=== PATIENT | female | born 1955 | race Two or more races ===

== ENCOUNTER → 2016-12-16 | Outpatient (REF) | payer OTHER ==
[~2016-12-16] MED LIST: ALBU83IN INH; ASPIRIN; ASTELIN; CELE-19 PO; COUM2.5T11 PO; LEXA1TAB PO; LYRI75CA PO; NASAL SPRAY; OMEPPOW18 PO; PERCOCET PO; TRAMADOL PO; TYLE167L PO; [UNRECOGNIZED DRUG - REMARK] PO
[2016-12-16 15:08] LABS: MEAN CORPUSCULAR HEMOGLOBIN 29.8 pg (27.0-33.0); MEAN CORPUSCULAR HGB CONC 33.7 g/dl (32.0-36.5); MEAN CORPUSCULAR VOLUME 88.5 fl (80.0-96.0); RED CELL DISTRIBUTION WIDTH 13.5 % (11.5-14.5); WHITE BLOOD COUNT 4.9 K/mm3 (4.0-10.0)
[2016-12-16 15:34] LABS: ERYTHROCYTE SEDIMENTATION RATE 58 mm/hr (0-30)
[2016-12-16 16:37] LABS: BASOPHILS 3 % (0-4); EOSINOPHILS 3 % (0-5)
== END ==
LOC: M LABDRAW1 13:39
PROVIDERS: ATTEND Physician Assistant
DX: Z96.651 Presence of right artificial knee joint (principal)

== ENCOUNTER → 2017-01-05 | Outpatient (CLI) | payer OTHER ==
--- NOTE | 2017-01-05 12:49 | REP ---
TRIPLE-PHASE BONE SCAN OF THE KNEES: Following the intravenous administration of 22 mCi technetium 99m MDP, patient's knees are imaged in the flow phase in the anterior and posterior projections showing symmetrical blood flow. Immediate blood pool and 2-hour delayed images are performed in the anterior, posterior and both lateral projections. Comparison made with prior study of 03/05/2015. Photopenic area in the region of the right knee joint is compatible with a metallic prosthesis. Increased uptake is again seen in the medial aspect of the left knee joint compatible with arthritic uptake. This appears stable. There is very mild increased uptake in the proximal aspect of the right tibia and in the distal end of the right femur adjacent to the metallic prosthesis. This appearance is unchanged since the prior exam. IMPRESSION: Arthritic uptake medial left knee joint. Very mildly increased uptake along the margins of the right knee prosthesis is likely physiologic with no new finding. No compelling scintigraphic evidence of loosening compared to the prior study. Signed by Eliseo Govea MD 01/05/2017 03:30 P
== END ==
LOC: M RAD 08:37
PROVIDERS: ATTEND Physician Assistant
DX: M25.561 Pain in right knee (principal)

== ENCOUNTER → 2017-01-12 | Outpatient (REF) | payer OTHER ==
[2017-01-12 14:53] LABS: RBC ADVIA BF 0.03; RBC CALC. BF 30000 (< 10mm3 cells/uL); SYNOVIAL FLUID COLOR AMBER (YELLOW)
[2017-01-12 14:54] LABS: BF DIFF IF INDICATED? YES (NO); WBC ADVIA BF 0.89; WBC CALC. BF 890 cells/uL (0-20)
[2017-01-12 14:58] LABS: CC BF DIFF EXAM CYTOCENTRIFUGE; CRYSTALS, BODY FLUID NONE SEEN (NONE SEEN)
[2017-01-12 14:59] LABS: HCT SOURCE RT KNEE
== END ==
LOC: M LAB REF 13:00
PROVIDERS: ATTEND Physician Assistant
DX: Z96.651 Presence of right artificial knee joint (principal)

== ENCOUNTER → 2020-03-25 | Outpatient (CLI) | payer MEDICARE, BC ==
[~2020-03-25] MED LIST changes: -CELE-19 PO; +CELE1CAP4 PO; -COUM2.5T11 PO; +COUM2.5T17 PO
--- NOTE | 2020-03-25 12:39 | REPMRS ---
Patient History The patient states she has not had a clinical breast exam in over a year.Patient is postmenopausal. Family history of breast cancer at age 54 in sister, colorectal cancer at age 66 in mother, colorectal cancer at age 60 in maternal aunt, colorectal cancer in maternal cousin. 3D TOMOSYNTHESIS WAS PERFORMED. The [facility] lifetime risk for breast cancer is 13.7%. VOLPAR[employer] DENSITY A. Digital Woman Screen Mammo: March 25, 2020 - Exam #: [id number] Bilateral CC and MLO view(s) were taken. Technologist: Raquel Bowling, Technologist FINDINGS: There are scattered fibroglandular densities. There has been no change in the appearance of the mammogram from the prior studies. There is a mild amount of residual fibroglandular tissue which is fairly symmetric. There is no interval development of dominant mass, architectural distortion, or clustered microcalcification suggestive of malignancy. Assessment: BI-RADS/ACR category 1 mammogram. Negative Mammogram. Recommendation Routine screening mammogram in 1 year (for women over age 40). This mammogram was interpreted with the aid of an FDA-approved computer-aided dectection system. Electronically Signed By: Eliseo Govea MD 03/25/20 [id number]
== END ==
LOC: M WHC 11:11
PROVIDERS: ATTEND Family Medicine
DX: Z12.31 Encounter for screening mammogram for malignant neoplasm of breast (principal); Z80.3 Family history of malignant neoplasm of breast; Z80.0 Family history of malignant neoplasm of digestive organs

== ENCOUNTER → 2021-03-31 | Outpatient (CLI) | payer MEDICARE | LOC: M WHC 12:33 | PROVIDERS: ATTEND Family Medicine | DX: Z12.31 Encounter for screening mammogram for malignant neoplasm of breast (principal) ==

== ENCOUNTER → 2021-05-23 | Outpatient (CLI) | payer MEDICARE, BC | LOC: M WHC 13:02 | PROVIDERS: ATTEND Family Medicine | DX: N64.4 Mastodynia (principal) | CPT/HCPCS: 76642; 77066; G0279 ==

== ENCOUNTER → 2022-01-22 | Outpatient (CLI) | payer MEDICARE, BC ==
[2022-01-22 13:46] LABS: FREE T4 1.09 NG/DL (0.76-1.46); RHEUMATOID FACTOR QUANT < 10.0 IU/ML (<15.0); THYROID STIMULATING HORMONE 0.957 uIU/ML (0.358-3.740); TOTAL PROTEIN 7.6 GM/DL (6.4-8.2); VITAMIN B12 LEVEL 538 PG/ML
[2022-01-22 14:18] LABS: HEMOGLOBIN A1c 11.6 %
== END ==
LOC: M PLALAB 10:13
PROVIDERS: ATTEND Psychiatry & Neurology Neurology
DX: E11.40 Type 2 diabetes mellitus with diabetic neuropathy, unspecified (principal); E07.9 Disorder of thyroid, unspecified

== ENCOUNTER 2024-11-06 06:16 | Day surgery (SDC) | payer MEDICARE ==
[~2024-11-06] VITALS: Ht 157.5 cm; Wt 117.9 kg
[~2024-11-06 06:16] MED LIST changes: +ACET650T61 PO; +ALBU2.5V10 INH; -ALBU83IN INH; +ATOR40TA75 PO; +ERGO500029 PO; +FLUTISP INH; +LANTINJ4 SC; +MONT10TA97 PO; +OMEP40CA5 PO; +SEMA7TAB2 PO
[2024-11-06] MEDS: FLURBIPROFEN 0.03% OPHTH SOLN 2.5 ML OD SCH (06:48)
[2024-11-06] MEDS: TETRACAINE 0.5% OPHTH SOLN 4ML OD SCH (06:48)
[2024-11-06] MEDS: CYCLOPENTOLATE 1% OPHTH SOLN 2ML BTL OD SCH (06:48)
[2024-11-06] MEDS: PHENYLEPHRINE 2.5% OPHTH SOL 2ML OD SCH (06:48)
[2024-11-06] MEDS ORDERED: LR 1,000 ML IV SCH (07:00)
[2024-11-06] MEDS ORDERED: MIDAZOLAM INJ 2MG/2ML VIAL As Ordered ONE (07:04)
[2024-11-06] MEDS: CEFUROXIME 1MG/0.1ML INTRACAMERAL INJ As Ordered ONE (08:00)
[2024-11-06] MEDS: LIDOCAINE 1% SDV 5ML VIAL As Ordered ONE (08:00)
[2024-11-06 08:18] VITALS: BP 130/72; TEMP 97.7; O2SAT 96
== END 2024-11-06 08:35 | disposition home or self-care (01) ==
LOC: M SDC 06:16
PROVIDERS: ATTEND Ophthalmology
DX: E11.36 Type 2 diabetes mellitus with diabetic cataract (principal); H25.11 Age-related nuclear cataract, right eye; E78.00 Pure hypercholesterolemia, unspecified; K76.0 Fatty (change of) liver, not elsewhere classified; J45.909 Unspecified asthma, uncomplicated; E11.40 Type 2 diabetes mellitus with diabetic neuropathy, unspecified; K21.9 Gastro-esophageal reflux disease without esophagitis; Z79.899 Other long term (current) drug therapy; Z79.4 Long term (current) use of insulin; Z79.85 Long-term (current) use of injectable non-insulin antidiabetic drugs; Z88.5 Allergy status to narcotic agent; Z88.1 Allergy status to other antibiotic agents; Z88.8 Allergy status to other drugs, medicaments and biological substances; Z90.710 Acquired absence of both cervix and uterus; Z87.19 Personal history of other diseases of the digestive system; Z87.891 Personal history of nicotine dependence
CPT/HCPCS: 66984; J0697; J2250; V2632

== ENCOUNTER 2024-11-13 06:12 | Day surgery (SDC) | payer MEDICARE ==
[~2024-11-13] VITALS: Ht 157.5 cm; Wt 118.4 kg
[2024-11-13] MEDS ORDERED: LR 1,000 ML IV SCH (07:00)
[2024-11-13] MEDS: FLURBIPROFEN 0.03% OPHTH SOLN 2.5 ML OS SCH (07:05)
[2024-11-13] MEDS: TETRACAINE 0.5% OPHTH SOLN 4ML OS SCH (07:05)
[2024-11-13] MEDS: CYCLOPENTOLATE 1% OPHTH SOLN 2ML BTL OS SCH (07:05)
[2024-11-13] MEDS: PHENYLEPHRINE 2.5% OPHTH SOL 2ML OS SCH (07:05)
[2024-11-13] MEDS ORDERED: MIDAZOLAM INJ 2MG/2ML VIAL As Ordered ONE (07:09)
[2024-11-13] MEDS: LIDOCAINE 1% SDV 5ML VIAL As Ordered ONE (08:10)
[2024-11-13] MEDS: CEFUROXIME 1MG/0.1ML INTRACAMERAL INJ As Ordered ONE (08:14)
[2024-11-13] MEDS ORDERED: ACETAMINOPHEN 1000MG/100ML IV BAG As Ordered ONE (08:16)
[2024-11-13 08:33] VITALS: BP 139/77; TEMP 97; O2SAT 95
== END 2024-11-13 09:06 | disposition home or self-care (01) ==
LOC: M SDC 06:12
PROVIDERS: ATTEND Ophthalmology
DX: E11.36 Type 2 diabetes mellitus with diabetic cataract (principal); H25.12 Age-related nuclear cataract, left eye; E11.69 Type 2 diabetes mellitus with other specified complication; E78.5 Hyperlipidemia, unspecified; E11.40 Type 2 diabetes mellitus with diabetic neuropathy, unspecified; K76.0 Fatty (change of) liver, not elsewhere classified; J45.909 Unspecified asthma, uncomplicated; K75.81 Nonalcoholic steatohepatitis (NASH); M06.89 Other specified rheumatoid arthritis, multiple sites; E66.01 Morbid (severe) obesity due to excess calories; Z79.4 Long term (current) use of insulin; Z79.899 Other long term (current) drug therapy; Z88.8 Allergy status to other drugs, medicaments and biological substances; Z88.1 Allergy status to other antibiotic agents; Z88.5 Allergy status to narcotic agent; Z90.710 Acquired absence of both cervix and uterus; Z87.891 Personal history of nicotine dependence; M51.16 Intervertebral disc disorders with radiculopathy, lumbar region
CPT/HCPCS: 66984; J0131; J0697; J2250; V2632